=== PATIENT | female | born 1995 | race Caucasian/White ===

== ENCOUNTER 2019-04-10 22:19 | Emergency (ER) | payer OTHER ==
[~2019-04-10] VITALS: Ht 162.6 cm; Wt 82.1 kg
[2019-04-10] MEDS ORDERED: ENBRACE HR SOF1 EACH PO (22:41)
[2019-04-10 23:22] VITALS: BP 139/64
== END 2019-04-10 23:22 | disposition left against medical advice (07) ==
LOC: M.ERS 22:19
DX: O26.892 Other specified pregnancy related conditions, second trimester (principal); M54.6 Pain in thoracic spine; Z3A.19 19 weeks gestation of pregnancy